=== PATIENT | female | born 1940 | race Caucasian/White ===

== ENCOUNTER 2017-01-05 18:08 | Emergency (ER) | payer SELFPAY ==
[~2017-01-05] VITALS: Ht 157.5 cm; Wt 65.0 kg
[2017-01-05 18:16] VITALS: Ht 157.5 cm; Wt 65.0 kg
[2017-01-05 18:40] LABS: URINE BLOOD (Dip) POC 2+ (NEGATIVE)
[2017-01-05] MEDS ORDERED: SOD CHLORIDE 0.9% 500 ML IV STA (18:41)
[2017-01-05] MEDS ORDERED: morphine 4 MG/ML VIAL IV STA (18:41)
[2017-01-05] MEDS ORDERED: ONDANSETRON 4 MG INJ IV STA (18:41)
[2017-01-05] MEDS ORDERED: SOD CHLORIDE 0.9% 1,000 ML IV STA (18:43)
[2017-01-05 18:58] LABS: BASOPHILS % 0.4 % (0.0-2.0); EOSINOPHILS # 0.1 10^3/ul (0.0-0.5); EOSINOPHILS % 1.2 % (0.0-7.0); HEMATOCRIT 39.4 % (37.0-47.0); HEMOGLOBIN 14.2 g/dl (12.0-16.0); LYMPHOCYTES % 26.6 % (15.0-51.0); MEAN CORPUSCULAR HEMOGLOBIN 32.2 pg (29.0-33.0); MEAN CORPUSCULAR VOLUME 89.3 fl (82.0-101.0); MEAN PLATELET VOLUME 12.5 fl (7.4-10.4); MONOCYTE # 0.6 10^3/ul (0.3-0.9); MONOCYTES % 5.7 % (0.0-11.0); NEUTROPHIL # 7.3 10^3/ul (1.6-7.5); NEUTROPHILS % 65.6 % (39.0-77.0); PLATELET COUNT 161 10^3/UL (140-415); RED BLOOD COUNT 4.41 10^6/ul (4.20-5.40); RED CELL DISTRIBUTION WIDTH 11.9 % (11.5-14.5); WHITE BLOOD COUNT 11.2 10^3/ul (4.8-10.8)
[2017-01-05 19:15] LABS: ADD UMIC YES; UR ASCORBIC ACID NEGATIVE (NEGATIVE); UR BILIRUBIN (Dip) NEGATIVE (NEGATIVE); UR BLOOD (Dip) 2+ mg/dL (NEGATIVE); UR CLARITY CLEAR (CLEAR); UR COLOR STRAW (YELLOW); UR GLUCOSE (Dip) 3+ mg/dL (NEGATIVE); UR KETONES (Dip) TRACE mg/dL (NEGATIVE); UR LEUKOCYTE ESTERASE (Dip) NEGATIVE Leu/ul (NEGATIVE); UR NITRITE (Dip) NEGATIVE (NEGATIVE); UR RBC 19 /HPF (0-5); UR SPECIFIC GRAVITY (Dip) 1.017 (1.003-1.030); UR TOTAL PROTEIN (Dip) NEGATIVE (NEGATIVE); UR UROBILINOGEN (Dip) NEGATIVE (NEGATIVE)
[2017-01-05 19:20] LABS: ALANINE AMINOTRANSFERASE 28 IU/L (13-69); ALBUMIN 4.7 g/dl (3.3-4.9); ALBUMIN/GLOBULIN RATIO 1.51; ALKALINE PHOSPHATASE 181 IU/L (42-121); ANION GAP 18 (8-16); ASPARTATE AMINO TRANSFERASE 29 IU/L (15-46); BILIRUBIN,INDIRECT 0.3 mg/dl (0-1.1); BILIRUBIN,TOTAL 0.3 mg/dl (0.2-1.3); BLOOD UREA NITROGEN 17 mg/dl (7-20); CALCIUM 9.2 mg/dl (8.4-10.2); CARBON DIOXIDE 24 mmol/L (21-31); CHLORIDE 100 mmol/L (97-110); CREATININE 0.71 mg/dl (0.44-1.00); POTASSIUM 4.1 mmol/L (3.5-5.1); SODIUM 138 mmol/L (135-144); TOTAL PROTEIN 7.8 g/dl (6.1-8.1)
[2017-01-05 19:25] LABS: GLUCOSE 449 mg/dl (70-220)
[2017-01-05 19:34] LABS: TROPONIN-I < 0.012 ng/ml (0.00-0.12)
[2017-01-05] MEDS ORDERED: INSULIN LISPRO 100 UNIT/ML VIAL SC STA (19:41)
--- NOTE | 2017-01-05 19:44 | RADRPT ---
PROCEDURE: XR Chest. CLINICAL INDICATION: Abdominal pain. TECHNIQUE: Single frontal view of the chest. COMPARISON: None. FINDINGS: Cardiomegaly and atherosclerotic calcifications in the thoracic aorta. The lungs are clear. No signs of pleural fluid or pneumothorax are seen. The osseous structures and soft tissues are unremarkable . IMPRESSION: No evidence for active cardiopulmonary disease. RPTAT: [facility] Physician Debra Date Time Electronically viewed and signed by Physician Debra on 01/05/2017 19:44 RS/
--- NOTE | 2017-01-05 19:57 | RADRPT ---
PROCEDURE: CT abdomen and pelvis without contrast. CLINICAL INDICATION: Abdominal pain TECHNIQUE: CT scan of the abdomen and pelvis without contrast was performed. Sagittal and coronal reformatted images were obtained from the axial source images. One or more of the following dose re duction techniques were used: Automated exposure control, adjustment of the mA and/or kV according t o patient size, use of iterative reconstruction technique. CTDI = 9.56 mGy; DLP = 495.48 mGy-cm COMPARISON: None. FINDINGS: Visualized lower thorax: The lung bases are clear. There is no evidence for pleural effusion. Liver, gallbladder, pancreas and spleen: The liver is normal and size, contour and attenuation. Th ere is no evidence for a liver mass or ductal dilatation. Calcified gallstone is present but there is no evidence of cholecystitis. No common bile duct abnormality is demonstrated. The pancreas is unremarkable. The spleen is normal in size. Adrenal glands and genitourinary system: The adrenal glands are normal bilaterally. 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 There is moderate right hydronephrosis and perinephric stranding caused by a right renal pelvi c calculus at the junction with the ureter, the stone estimated at 15 x 10 x 9 mm. The attenuation o f the calculus is approximately 1000 HU. The ureters are unremarkable. No urinary bladder abnormal ity is demonstrated. Multiple vascular calcifications are present within the atrophic uterus. There is no evidence of ovarian or adnexal mass. Gastrointestinal system: The stomach is normal in caliber with no abnormality of significance. The small bowel is normal in caliber with no ileus, obstruction or wall thickening. The appendix and s urrounding fat are within the limits of normal. A few diverticula of the distal colon are present. There is no evidence for colitis or diverticulitis. Peritoneum, retroperitoneum, lymph nodes and vessels: The abdominal aorta is normal in caliber. The re is moderate aortic and iliac system atherosclerotic calcification. The inferior vena cava is unr emarkable. There is no evidence for adenopathy or mass. There is no ascites. No pneumoperitoneum i s present. Osseous structures and musculoskeletal findings: Diffuse demineralization is present without acute osseous abnormality. Mild spondylosis is present. No muscular abnormality or soft tissue pathology is present. RPTAT:HJJR IMPRESSION: 1. Moderate right hydronephrosis caused by a 1.5 x 1.0 x 0.9 cm calculus at the right ureteropelvic junction, associated perinephric inflammatory stranding cannot exclude superimposed pyelonephritis. 2. Cholelithiasis without evidence of cholecystitis. 3. Mild diverticular disease of the colon without diverticulitis. 4. Atherosclerotic calcification. Sher Baron Physician Date Time Electronically viewed and signed by Sher Baron Physician on 01/05/2017 19:56 JR/
[2017-01-05 21:00] VITALS: BP 149/67; PULSE 77; RESP 18; TEMP 98.7
[2017-01-05] MEDS ORDERED: HYDR-906 PO (21:04)
[2017-01-05] MEDS ORDERED: DOCU-144 PO (21:04)
[2017-01-05] MEDS ORDERED: ONDA4TAB14 PO (21:04)
--- NOTE | 2017-01-05 21:09 | ERD ---
ER Documentation Chief Complaint Chief Complaint RT FLANK PAIN X2 DAYS HPI This is a very pleasant 76-year-old female presents with her daughter. A photogrammetric technician was used. The patient describes approximately 2 days of right flank pain radiating to the right lower quadrant with scant hematuria. The patient does have a history of hypertension has not taken her blood pressure medication today. She denies any chest pain or shortness of breath, no pleuritic pain, no fevers chills nausea vomiting or diarrhea. The pain is described as 8 out of 10 currently. ROS All systems reviewed and are negative except as per history of present illness. Medications Home Meds Active Scripts Docusate Sodium* (Colace*) 100 Mg Capsule, 100 MG PO BID Y for CONSTIPATION, # 30 CAP Prov:FIOR BYNUM MD 01/05/17 Ondansetron (Ondansetron Odt) 4 Mg Tab.rapdis, 4 MG PO Q6H Y for NAUSEA AND/OR VOMITING, #10 TAB Prov:FIOR BYNUM MD 01/05/17 Hydrocodone/Acetaminophen (Saint Peter 5-325 Tablet) 1 Each Tablet, 1 TAB PO Q6H Y for PAIN, #10 TAB Prov:FIOR BYNUM MD 01/05/17 Allergies Allergies: Coded Allergies: No Known Allergy (Unverified , 01/05/17) PMhx/Soc History of Surgery: No Anesthesia Reaction: No Hx Neurological Disorder: No Hx Respiratory Disorders: No Hx Cardiac Disorders: Yes (HTN) Hx Psychiatric Problems: No Hx Miscellaneous Medical Probl: Yes (DM) Hx Alcohol Use: No Hx Substance Use: No Hx Tobacco Use: No Smoking Status: Never smoker FmHx Family History: diabetes Physical Exam Vitals Vital Signs Date Time Temp Pulse Resp B/P Pulse Ox O2 Delivery O2 Flow Rate FiO2 01/05/17 18:40 99.1 18 227/100 100 Room Air 01/05/17 18:16 99.1 93 18 227/100 100 Physical Exam General: Uncomfortable, tearful Head: Normocephalic, atraumatic. Eyes: Pupils equally reactive, EOM intact ENT: Moist mucous membranes Neck: Supple, no lymphadenopathy Respiratory: Lungs clear bilaterally, no distress Cardiovascular: RRR, no murmurs, rubs, or gallops Abdominal: Soft, non-tender, non-distended, no peritoneal signs, no tenderness to McBurney's point Back: No significant CVA tenderness : Deferred MSK: No edema, no unilateral swelling, 5/5 strength Neurologic: Alert and oriented, moving all extremities, normal speech, no focal weakness, no cerebellar signs Skin: No rash Psych: Normal mood Result Diagram: 01/05/17 1840 01/05/17 1840 Results 24 hrs Laboratory Tests Test 01/05/17 18:38 01/05/17 18:40 01/05/17 18:42 01/05/17 20:13 Bedside Urine pH (LAB) 7.0 Bedside Urine Protein (LAB) Trace Bedside Urine Glucose (UA) 0.50% Bedside Urine Ketones (LAB) Negative Bedside Urine Blood 2+ Bedside Urine Nitrite (LAB) Negative Bedside Urine Leukocyte Esterase (L Negative White Blood Count 11.210^3/ul Red Blood Count 4.4110^6/ul Hemoglobin 14.2g/dl Hematocrit 39.4% Mean Corpuscular Volume 89.3fl Mean Corpuscular Hemoglobin 32.2pg Mean Corpuscular Hemoglobin Concent 36.0g/dl Red Cell Distribution Width 11.9% Platelet Count 78128^3/UL Mean Platelet Volume 12.5fl Neutrophils % 65.6% Lymphocytes % 26.6% Monocytes % 5.7% Eosinophils % 1.2% Basophils % 0.4% Nucleated Red Blood Cells % 0.0/100WBC Neutrophils # 7.310^3/ul Lymphocytes # 3.010^3/ul Monocytes # 0.610^3/ul Eosinophils # 0.110^3/ul Basophils # 0.010^3/ul Nucleated Red Blood Cells # 0.010^3/ul Urine Color STRAW Urine Clarity CLEAR Urine pH 7.0 Urine Specific [place] 1.017 Urine Ketones TRACEmg/dL Urine Nitrite NEGATIVEmg/dL Urine Bilirubin NEGATIVEmg/dL Urine Urobilinogen NEGATIVEmg/dL Urine Leukocyte Esterase NEGATIVELeu/ul Urine Microscopic RBC 19/HPF Urine Microscopic WBC 5/HPF Urine Hemoglobin 2+mg/dL Urine Glucose 3+mg/dL Urine Total Protein NEGATIVEmg/dl Sodium Level 138mmol/L Potassium Level 4.1mmol/L Chloride Level 100mmol/L Carbon Dioxide Level 24mmol/L Anion Gap 18 Blood Urea Nitrogen 17mg/dl Creatinine 0.71mg/dl Glucose Level 449mg/dl Calcium Level 9.2mg/dl Total Bilirubin 0.3mg/dl Direct Bilirubin 0.00mg/dl Indirect Bilirubin 0.3mg/dl Aspartate Amino Transf (AST/SGOT) 29IU/L Alanine Aminotransferase (ALT/SGPT) 28IU/L Alkaline Phosphatase 181IU/L Troponin I < 0.012ng/ml Total Protein 7.8g/dl Albumin 4.7g/dl Globulin 3.10g/dl Albumin/Globulin Ratio 1.51 Lipase 241U/L Bedside Glucose 429mg/dL 318mg/dL Current Medications Medications (Trade) Dose Ordered Sig/Sanjay Route PRN Reason Start Time Stop Time Status Last Admin Dose Admin Sodium Chloride (NS) 500 ml @ 500 mls/hr Q1H STAT IV 01/05/17 18:41 01/05/17 19:40 DC 01/05/17 18:41 Morphine Sulfate (morphine) 4 mg ONCE STAT IV 01/05/17 18:41 01/05/17 18:42 DC 01/05/17 18:51 Ondansetron HCl 4 mg 4 mg ONCE STAT IV 01/05/17 18:41 01/05/17 18:42 DC 01/05/17 18:51 Sodium Chloride (NS) 1,000 ml @ 1,000 mls/hr Q1H STAT IV 01/05/17 18:43 01/05/17 19:42 DC 01/05/17 18:51 Insulin Human Lispro (Humalog) 10 unit ONCE STAT SC 01/05/17 19:41 01/05/17 19:50 DC 01/05/17 20:16 Procedures/MDM EKG, MONITORS, & DIAGNOSTIC IMAGING: Chest x-ray: I reviewed and interpreted a 1 view of the chest Mediastinum: No enlargement Cardiac silhouette: No cardiomegaly Airspace: Clear lung coats bilaterally without evidence of pneumothorax Bones: No evidence of fracture IMPRESSION: 1. Moderate right hydronephrosis caused by a 1.5 x 1.0 x 0.9 cm calculus at the right ureteropelvic junction, associated perinephric inflammatory stranding cannot exclude superimposed pyelonephritis. 2. Cholelithiasis without evidence of cholecystitis. 3. Mild diverticular disease of the colon without diverticulitis. 4. Atherosclerotic calcification. LAB INTERPRETATION: Hyper glycemia without evidence of diabetic ketoacidosis, scant hematuria, no evidence of urinary tract infection MEDICAL DECISION MAKING: The patient presents with right flank pain. While the patient does have significant hypertension she has a known history of hypertension and does not describe any signs or symptoms that would be concerning for acute aortic process. Stronger clinical concern for ureteral stone given her description of symptoms and hematuria. For this reason I do not believe she requires a CT angiogram. I will treat her pain and reevaluate. She has no signs or symptoms concerning for cardiopulmonary process. ER COURSE: She was given IV fluids and pain control medication. She was found to be hyperglycemic without evidence of diabetic ketoacidosis and was given 10 units of Humalog. Her blood sugar was down trending. Her hypertension also improved with pain control. She has no evidence of acute aortic dissection and has a good reason for her pain therefore no indication for CTA. The patient's CT shows a significant ureteral stone. However, the patient's pain is well controlled. She has no evidence of renal insufficiency or urinary tract infection. I spoke to Dr. Rowley, on-call urologist. He states that as long as the patient's pain is well controlled she can be followed up as an outpatient. I discussed inpatient versus outpatient management with the patient and family. They feel most comfortable going home with outpatient follow-up given her pain is well controlled at this point. I strongly urged to return for any uncontrolled pain or fever. They verbalized understanding. Referral information will be provided [facility]. They understand the stone is significant and will not pass on its own. I kept the patient and/or family informed of laboratory and diagnostic imaging results throughout the emergency room course. DISPOSITION PLAN: We discussed follow up with the patient's primary care doctor within 24 to 48 hours as needed. We also discussed return to the emergency room for worsening symptoms or worsening condition. Outpatient referral: Urology Discharge Medications: Saint Peter, Zofran, Colace We discussed the use of narcotics including avoidance of operating heavy machinery and driving as well as its addictive properties. Departure Diagnosis: Primary Impression: Ureterolithiasis Additional Impressions: Flank pain Hypertensive urgency Hyperglycemia Condition: Stable Patient Instructions: Treating Kidney Stones: Ureteroscopic Stone Removal, Kidney Stone W/ Colic Referrals: OSIEL ROWLEY MD [facility] () Usted se del toro hecho un examen mdico de control que le indica que no est en sandra condicin que requiera tratamiento urgente en el Departamento de Emergencia. Un estudio ms profundo y el tratamiento de watkins condicin pueden esperar sin ningn riesgo hasta que usted sea atendida/o en el consultorio de watkins mdico o sandra cl oral. Es responsabilidad suya arreglar sandra christine para el seguimiento del jenny. MANEJO DE CONDICIONES NO URGENTES EN EL FUTURO 1) Si usted tiene un mdico de atencin primaria: Usted debera llamar a watkins mdico de atencin primaria antes de venir al departamento de emergencia. Despus de las horas de consultorio, watkins doctor o watkins asociado/a est disponible por telfono. El mdico o enfermero de alejandro en el servicio telefnico puede asesorarle por joan medio para atender el problema, o jenny contrario se puede programar sandra christine. 2) Si usted no tiene un mdico de atencin primaria: Llame al mdico o clnica de referencia que aparece abajo kennedy las horas de consultorio para hacer sandra christine para que le vean. CLINICAS: [facility] [phone] [facility] [phone] [facility]. [facility] [phone] [facility]. [facility] [phone] [facility]. [place] [id number] [phone] [facility]. [phone] [address] [facility]. [facility] () Usted se del toro hecho un examen mdico de control que le indica que no est en sandra condicin que requiera tratamiento urgente en el Departamento de Emergencia. Un estudio ms profundo y el tratamiento de watkins condicin pueden esperar sin ningn riesgo hasta que usted sea atendida/o en el consultorio de watkins mdico o sandra cl oral. Es responsabilidad suya arreglar sandra christine para el seguimiento del jenny. MANEJO DE CONDICIONES NO URGENTES EN EL FUTURO 1) Si usted tiene un mdico de atencin primaria: Usted debera llamar a watkins mdico de atencin primaria antes de venir al departamento de emergencia. Despus de las horas de consultorio, watkins doctor o watkins asociado/a est disponible por telfono. El mdico o enfermero de alejandro en el servicio telefnico puede asesorarle por joan medio para atender el problema, o jenny contrario se puede programar sandra christine. 2) Si usted no tiene un mdico de atencin primaria: Llame al mdico o condado institucions de referencia que aparece abajo kennedy las horas de consultorio para hacer sandra christine para que le vean. SI USTED NO PUEDE PAGAR PARA LALO UN MEDICO puede ir a: [facility] [address] [place] [address] [facility] [address] [place] [address] [facility] [address] [place] [address] [facility] [address] [place], [place] [id number] [facility] Urology Additional Instructions: You will absolutely need to see a urologist. Follow-up as soon as possible. Return to the emergency room for uncontrolled pain or fever. Llame al doctor MAANA y pollo sandra CHRISTINE PARA DENTRO DE 2-3 [place].Dgale a la secretaria que nosotros le instruimos hacer esta christine.Avise o llame si watkins condicin se empeora antes de la christine. Regresa aqui si peor o no mejor. FIOR BYNUM MD Jan 05, 2017 21:09
== END 2017-01-05 21:20 | disposition home or self-care (01) ==
LOC: E/R 18:08
DX: N20.1 Calculus of ureter (principal); I10 Essential (primary) hypertension; I16.0 Hypertensive urgency; E11.65 Type 2 diabetes mellitus with hyperglycemia
CPT/HCPCS: 36415; 71010; 74176; 80053; 81001; 82962; 83690; 84484; 85025; 93005; 96372; 96374; 96375; 99285; J1815; J2270; J2405; J7030; J7040; 81003